=== PATIENT | male | born 2000 | race African-American/Black ===

== ENCOUNTER 2021-10-20 20:21 | Emergency (ER) | payer SELFPAY ==
[2021-10-20] MEDS ORDERED: Lorazepam (BATCHED) 2 MG/ML SYR ONE (20:25)
[2021-10-20] MEDS ORDERED: Ketamine 50 MG/ML (10ML VIAL) ONE (20:38)
== END 2021-10-20 23:33 | disposition home or self-care (01) ==
LOC: ERS 20:21 → EDBD 20:21 → ERS 23:33
DX: F16.10 Hallucinogen abuse, uncomplicated (principal)
CPT/HCPCS: 96372; 99284; J2060